=== PATIENT | female | born 1945 | race Caucasian/White ===

== ENCOUNTER → 2021-09-06 | Emergency (ER) | payer MEDICARE, SELFPAY ==
[~2021-09-06] MED LIST: Albuterol Sulfate 2.5 mg/3 ml Neb ONE; Cefepime 2 GM VIAL ONE; Sodium Chloride 0.9% 100 ML ONE; methylPREDNISolone Sod Succ/PF 125 MG/2 ML VIAL ONE
[2021-09-06 20:05] LABS: ALT (SGPT) 36 U/L (8-55); AST (SGOT) 40 U/L (5-34); Albumin 3.6 g/dL (3.4-4.8); Alkaline Phosphatase 46 U/L (40-110); Anion Gap 15 mmol/L (10-20); BUN (Urea Nitrogen) 12 mg/dL (9.8-20.1); Bilirubin, Total 0.7 mg/dL (0.2-1.2); CK (CPK) 83 U/L (29-168); Calc. Creatinine Clearance 0 mL/min (70-130); Calcium 7.8 mg/dL (7.8-10.44); Carbon Dioxide 26 mmol/L (23-31); Chloride 102 mmol/L (98-107); Globulin 2.6 g/dL (2.4-3.5); Glucose 105 mg/dL (83-110); Potassium 3.8 mmol/L (3.5-5.1); Protein, Total 6.2 g/dL (5.8-8.1); Sodium 139 mmol/L (136-145)
[2021-09-06 20:42] LABS: Band 16 % (5-11); Hemoglobin 13.6 g/dL (12.0-16.0); Lymphocytes 3 % (21-51); MDiff Complete? YES; Mean Corpuscular HGB CONC 32.1 g/dL (32.0-36.0); Mean Corpuscular Hemoglobin 29.5 pg (27.0-31.0); Mean Corpuscular Volume 91.8 fL (78.0-98.0); Mean Platelet Volume 8.9 fL (7.4-10.4); Monocytes 1 % (0-10); Neutrophil 80 % (42-75); Platelet Count 53 thou/uL (130-400); Platelet Morphology Comment Appears Decreased; RBC Distribution Width 12.5 % (11.5-14.5); RBC Morphology Normal; Red Blood Cell (RBC) Count 4.62 mill/uL (4.20-5.40); Reflex for Review?? YES; White Blood Cell (WBC) Count 1.2 thou/uL (4.8-10.8)
[2021-09-06 22:29] LABS: SARS-CoV-2 NAA Rapid Test DETECTED (NotDetected)
== END ==
LOC: MADERS 18:32
DX: U07.1 COVID-19 (principal); J12.82 Pneumonia due to coronavirus disease 2019; J44.1 Chronic obstructive pulmonary disease with (acute) exacerbation; D69.6 Thrombocytopenia, unspecified; F17.210 Nicotine dependence, cigarettes, uncomplicated
CPT/HCPCS: 36415; 71045; 80053; 82550; 83605; 83880; 84484; 85025; 85060; 85379; 86140; 87040; 87804; 93005; 96365; 96366; 96367; 96375; J0692; J1956; J2930; J3490; J7611; J7620; U0002